=== PATIENT | female | born 1985 | race Hispanic/Latino ===

== ENCOUNTER 2017-08-04 04:25 | Emergency (ER) | payer BC ==
[2017-08-04 05:23] VITALS: BMI 39.5
[2017-08-04 05:28] VITALS: BP 143/99; PULSE 86; RESP 18; TEMP 98; O2SAT 99
[2017-08-04] MEDS ORDERED: Oxycodone/Acetaminophen 5/325 mg Tab PO ONE (05:50)
[2017-08-04] MEDS ORDERED: Oxycodone/Acetaminophen 5/325 mg Tab ONE (06:07)
--- NOTE | 2017-08-04 06:53 | ED PDOC ---
HPI: General Adult Time Seen by Provider: 08/04/17 05:35 Chief Complaint (Nursing): ENT Problem History Per: Patient History/Exam Limitations: no limitations Onset/Duration Of Symptoms: Days (4) Current Symptoms Are (Timing): Still Present Severity: Moderate Similar Symptoms Previously: Yes Additional History Per: Patient Additional Complaint(s): 31 y/o female who complains of atraumatic right ear, neck, and shoulder pain for the last four days. She complains that pain has been worsening and is associated with muscle spasm and posterior headache. Advil did not improve the pain. In the past, patient was seen by chiropractor for similar. Pain not associated with numbness, weakness, or other complaint. Past Medical History Reviewed: Historical Data, Nursing Documentation, Vital Signs Vital Signs: Last Vital Signs Temp 98.0 F 08/04/17 05:26 Pulse 86 08/04/17 05:26 Resp 18 08/04/17 05:26 BP 143/99 H 08/04/17 05:26 Pulse Ox 99 08/06/17 11:52 - Medical History PMH: Kidney Stones, Chronic Kidney Disease Denies: Lancaster's Disease - Surgical History Surgical History: Tonsillectomy - Family History Family History: States: Unknown Family Hx - Immunization History Hx Tetanus Toxoid Vaccination: No Hx Influenza Vaccination: No Hx Pneumococcal Vaccination: No - Home Medications Home Medications: Ambulatory Orders Medication Instructions Recorded Azithromycin [Z-Christian] 250 mg PO DAILY #4 tab 06/13/16 Promethazine HCl/Codeine 5 ml PO Q6H PRN #120 ml 06/13/16 [Prometh-Codein 6.25-10 mg/5 ml] Cyclobenzaprine [Cyclobenzaprine 10 mg PO TID #15 tab 08/04/17 HCl] Naproxen 500 mg PO BID #20 ect 08/04/17 - Allergies Allergies/Adverse Reactions: Allergies Allergy/AdvReac Type Severity Reaction Status Date / Time No Known Allergies Allergy Verified 06/13/16 11:27 Review of Systems ROS Statement: Except As Marked, All Systems Reviewed And Found Negative ENT: Positive for: Ear Pain Musculoskeletal: Positive for: Neck Pain, Shoulder Pain Neurological: Positive for: Headache Physical Exam - Reviewed Nursing Documentation Reviewed: Yes Vital Signs Reviewed: Yes - Physical Exam Appears: Positive for: Well, Non-toxic, No Acute Distress Head Exam: Positive for: ATRAUMATIC, NORMAL INSPECTION, NORMOCEPHALIC Skin: Positive for: Normal Color, Warm, DRY Eye Exam: Positive for: EOMI, Normal appearance, PERRL ENT: Positive for: Normal ENT Inspection Neck: Positive for: Pain On Movement Of Neck. Negative for: Normal (tenderness to palpation of the right cervial paraspinal muscles), Painless ROM Cardiovascular/Chest: Positive for: Regular Rate, Rhythm Respiratory: Positive for: Normal Breath Sounds. Negative for: Respiratory Distress Back: Positive for: Normal Inspection Extremity: Positive for: Normal ROM Neurologic/Psych: Positive for: Alert, Oriented - ECG O2 Sat by Pulse Oximetry: 99 - Progress Re-evaluation Time: 06:50 Condition: Re-examined, Improved Medical Decision Making Medical Decision Making: Impression: neck pain Differential Diagnosis: Muscle Spasm or Torticollis Plan: - Valium - Toradol -percocet reassess Scribe Attestation Documented by Karine Sanabria acting as a scribe for Shalini Tidwell MD. Scribe Attestation All medical record entries made by the Scribe were at my direction and personally dictated by me. I have reviewed the chart and agree that the record accurately reflects my personal performance of the history, physical exam, medical decision making, and the department course for this patient. I have also personally directed, reviewed, and agree with the discharge instructions and disposition. Disposition - Clinical Impression Clinical Impression: Neck pain - Patient ED Disposition Is Patient to be Admitted: No Doctor Will See Patient In The: Office Counseled Patient/Family Regarding: Studies Performed, Diagnosis, Need For Followup - Disposition Referrals: [facility] [Outside] Disposition: Routine/Home Disposition Time: 07:03 Condition: GOOD Additional Instructions: Take your medications as instructed. Follow up with your PCP in 2-3 days. Prescriptions: Cyclobenzaprine [Cyclobenzaprine HCl] 10 mg PO TID #15 tab Naproxen 500 mg PO BID #20 ect Instructions: Neck Pain
== END 2017-08-04 07:28 | disposition home or self-care (01) ==
LOC: H.ER 04:25
DX: M54.2 Cervicalgia (principal)
CPT/HCPCS: 96372; 99282; J1885

== ENCOUNTER 2018-02-25 08:51 | Emergency (ER) | payer BC ==
[2018-02-25 08:51] VITALS: BMI 39.5
[2018-02-25 09:23] VITALS: RESP 18; TEMP 98
--- NOTE | 2018-02-25 10:23 | ED PDOC ---
HPI: Back Time Seen by Provider: 02/25/18 09:00 Chief Complaint (Nursing): Back Pain Chief Complaint (Provider): Back Pain History Per: Patient History/Exam Limitations: no limitations Onset/Duration Of Symptoms: Days (x1 day ago) Current Symptoms Are (Timing): Constant Additional Complaint(s): Nessa Liriano is a 32 year old female with a past medical history of kidney stones, who presents to the emergency department complaining of mid to lower back pain, associated with a post nasal drip and cough, onset x1 day ago. Patient describes abdominal pain as constant and radiating to legs with the more pain on the right to the left. She states she went to an urgent care clinic where they did a UA and it showed there was blood in the urine. Patient was instructed to follow up with ED if pain is constant, causing her to come in today. She denies any abdominal pain, fall or injury. PMD: None Urologist: Dr. Green Past Medical History Reviewed: Historical Data, Nursing Documentation, Vital Signs Vital Signs: Last Vital Signs Temp 98 F 02/25/18 09:17 Pulse 87 02/25/18 09:17 Resp 18 02/25/18 09:17 BP 129/82 02/25/18 09:17 Pulse Ox 98 02/25/18 09:17 - Medical History PMH: Kidney Stones, Chronic Kidney Disease Denies: Alli's Disease - Surgical History Surgical History: Tonsillectomy - Family History Family History: States: Unknown Family Hx - Social History Current smoker - smoking cessation education provided: No Alcohol: None Drugs: Denies - Immunization History Hx Tetanus Toxoid Vaccination: No Hx Influenza Vaccination: No Hx Pneumococcal Vaccination: No - Home Medications Home Medications: Ambulatory Orders Medication Instructions Recorded Promethazine HCl/Codeine 5 ml PO Q6H PRN #120 ml 06/13/16 [Prometh-Codein 6.25-10 mg/5 ml] RX: Azithromycin [Z-Christian] 250 mg PO DAILY #4 tab 06/13/16 Cyclobenzaprine [Cyclobenzaprine 10 mg PO TID #15 tab 08/04/17 HCl] RX: Naproxen 500 mg PO BID #20 ect 08/04/17 Ibuprofen [Motrin] 600 mg PO Q6H PRN #20 tab 02/25/18 Tamsulosin [Flomax] 0.4 mg PO DAILY #14 cap 02/25/18 - Allergies Allergies/Adverse Reactions: Allergies Allergy/AdvReac Type Severity Reaction Status Date / Time No Known Allergies Allergy Verified 06/13/16 11:27 Review of Systems ROS Statement: Except As Marked, All Systems Reviewed And Found Negative ENT: Positive for: Other (nasal drip) Respiratory: Positive for: Cough Gastrointestinal: Negative for: Abdominal Pain Musculoskeletal: Positive for: Back Pain Physical Exam - Reviewed Nursing Documentation Reviewed: Yes Vital Signs Reviewed: Yes - Physical Exam Appears: Positive for: Non-toxic, No Acute Distress Head Exam: Positive for: ATRAUMATIC, NORMOCEPHALIC Skin: Positive for: Normal Color, Warm, Dry Eye Exam: Positive for: Normal appearance, EOMI, PERRL ENT: Positive for: Normal ENT Inspection Neck: Positive for: Normal, Painless ROM, Supple Cardiovascular/Chest: Positive for: Regular Rate, Rhythm. Negative for: Murmur Respiratory: Positive for: Normal Breath Sounds. Negative for: Respiratory Distress Gastrointestinal/Abdominal: Positive for: Normal Exam, Soft. Negative for: Tenderness Back: Positive for: Normal Inspection. Negative for: L CVA Tenderness, R CVA Tenderness, Vertebral Tenderness Extremity: Positive for: Normal ROM. Negative for: Pedal Edema, Deformity Neurologic/Psych: Positive for: Alert, Oriented (x3). Negative for: Motor/Sensory Deficits - Laboratory Results Result Diagrams: 02/25/18 10:30 02/25/18 10:30 - ECG O2 Sat by Pulse Oximetry: 98 (RA) Pulse Ox Interpretation: Normal Medical Decision Making Medical Decision Making: Initial Time: 10:14 Initial Impression: abdominal pain rule out kidney stones or UTI (pt currently on abx for upper respiratory infection) Initial Plan: --Abd and pelvis CT without PO or IV contrast --CMP --CBC with differential --Toradol 30 mg IV --Sodium chloride 1,000 ml --Urine culture --UA 12:24 CT FINDINGS: LOWER THORAX: Unremarkable. LIVER: Unremarkable. No gross lesion or ductal dilatation. GALLBLADDER AND BILE DUCTS: Unremarkable. PANCREAS: Unremarkable. No gross lesion or ductal dilatation. SPLEEN: Unremarkable. ADRENALS: Unremarkable. No mass. KIDNEYS AND URETERS: 5 mm nonobstructing left lower pole renal calculus. Additional punctate nonobst ructing left renal calculi. There is a 6 mm cortical calcification in the upper pole of the left kidney unchanged from previous examination. There is no hydronephrosis. There is no right renal calculus. There is no hydroureter or ureteral calculus. There is no renal mass. There is a cortical scar in the upper pole left kidney. This is nonspecific. VASCULATURE: Unremarkable. No aortic aneurysm. No aortic atherosclerotic calcification or mural plaque present. BOWEL: Unremarkable. No obstruction. No gross mural thickening. APPENDIX: Unremarkable. Normal appendix. PERITONEUM: Unremarkable. No free fluid. No free air. LYMPH NODES: Unremarkable. No enlarged lymph nodes. BLADDER: Unremarkable. REPRODUCTIVE: Normal uterus BONES: No acute fracture. Grade 1 retrolisthesis at L5-S1, likely degenerative. OTHER FINDINGS: None. IMPRESSION: Nonobstructing left renal calculi. No hydronephrosis. Left renal cortical calcification. Left renal cortical scar common nonspecific. No other significant abnormality. 13:12 Patient was given a copy of her CT report. aware of results. she feels improved. pt tolerated po. stable for dc pt has urologist dr alfaro and will follow up w him Scribe Attestation: Documented by Carlos Hamliton, acting as a scribe for Daisy Smalls MD. Provider Scribe Attestation: All medical record entries made by the Scribe were at my direction and personally dictated by me. I have reviewed the chart and agree that the record accurately reflects my personal performance of the history, physical exam, medical decision making, and the department course for this patient. I have also personally directed, reviewed, and agree with the discharge instructions and disposition. Disposition - Clinical Impression Clinical Impression: Kidney stone - Patient ED Disposition Is Patient to be Admitted: No Counseled Patient/Family Regarding: Studies Performed, Diagnosis, Need For Followup - Disposition Disposition: Routine/Home Disposition Time: 13:14 Condition: IMPROVED Additional Instructions: follow up with your urologist Dr alfaro in 1-2 days return to the ED with any worsening or concerning symptoms Prescriptions: Ibuprofen [Motrin] 600 mg PO Q6H PRN #20 tab PRN Reason: Pain, Moderate (4-7) Tamsulosin [Flomax] 0.4 mg PO DAILY #14 cap Instructions: Kidney Stones in Adults Forms: [employer] (Scottish), [facility] ED School/Work Excuse
[2018-02-25 10:46] LABS: BASO % 0.6 % (0.0-2.0); EOS # 0.3 K/uL (0.0-0.7); EOS % 4.8 % (0.0-4.0); HEMOGLOBIN 13.3 g/dL (12.0-16.0); LYMPH # 0.7 K/uL (1.0-4.3); LYMPH % 12.5 % (20.0-40.0); MEAN CELL VOLUME 84.5 fl (81.0-99.0); MEAN CORPUSCULAR HEMOGLOBIN 28.2 pg (27.0-31.0); MEAN CORPUSCULAR HGB CONC 33.4 g/dL (33.0-37.0); MEAN PLATELET VOLUME 6.9 fl (7.2-11.7); MONO # 0.6 K/uL (0.0-0.8); MONO % 10.3 % (0.0-10.0); NEUT % 71.8 % (50.0-75.0); RBC 4.7 Mil/uL (3.80-5.20); RED CELL DISTRIBUTION WIDTH 13.2 % (11.5-14.5); WHITE BLOOD COUNT 5.5 K/uL (4.8-10.8)
[2018-02-25 10:57] LABS: ALB/GLOB RATIO 1.3 (1.0-2.1); ALBUMIN 4.2 g/dL (3.5-5.0); ALT/SGPT 29 U/L (9-52); AST/SGOT 20 U/L (14-36); BLOOD UREA NITROGEN 13 mg/dl (7-17); GFR NON-AFRICAN AMERICAN > 60
[2018-02-25 10:59] LABS: URINE BILIRUBIN NEGATIVE (NEGATIVE); URINE BLOOD MODERATE (NEGATIVE); URINE CLARITY CLOUDY (Clear); URINE COLOR YELLOW (YELLOW); URINE GLUCOSE (UA) NEG (Normal); URINE LEUKOCYTE ESTERASE TRACE Leu/uL (Negative); URINE PROTEIN NEGATIVE (NEGATIVE); URINE UROBILINOGEN 0.2-1.0 mg/dL (0.2-1.0)
[2018-02-25] MEDS: Sodium Chloride 0.9% 1,000 ML IV STA (11:03)
[2018-02-25 11:13] LABS: SQUAMOUS EPITHIAL 20 /hpf (0-5)
[2018-02-25 11:14] LABS: URINE BACTERIA OCC (<OCC)
--- NOTE | 2018-02-25 12:28 | CT ---
Date of service: 02/25/2018 PROCEDURE: CT Abdomen and Pelvis without intravenous contrast HISTORY: abd pain, flank pain COMPARISON: 02/21/2016 TECHNIQUE: Without contrast.. Contrast dose: 0 Radiation dose: Total exam DLP = 923.42 mGy-cm. This CT exam was performed using one or more of the following dose reduction techniques: Automated exposure control, adjustment of the mA and/or kV according to patient size, and/or use of iterative reconstruction technique. FINDINGS: LOWER THORAX: Unremarkable. LIVER: Unremarkable. No gross lesion or ductal dilatation. GALLBLADDER AND BILE DUCTS: Unremarkable. PANCREAS: Unremarkable. No gross lesion or ductal dilatation. SPLEEN: Unremarkable. ADRENALS: Unremarkable. No mass. KIDNEYS AND URETERS: 5 mm nonobstructing left lower pole renal calculus. Additional punctate nonobstructing left renal calculi. There is a 6 mm cortical calcification in the upper pole of the left kidney unchanged from previous examination. There is no hydronephrosis. There is no right renal calculus. There is no hydroureter or ureteral calculus. There is no renal mass. There is a cortical scar in the upper pole left kidney. This is nonspecific. VASCULATURE: Unremarkable. No aortic aneurysm. No aortic atherosclerotic calcification or mural plaque present. BOWEL: Unremarkable. No obstruction. No gross mural thickening. APPENDIX: Unremarkable. Normal appendix. PERITONEUM: Unremarkable. No free fluid. No free air. LYMPH NODES: Unremarkable. No enlarged lymph nodes. BLADDER: Unremarkable. REPRODUCTIVE: Normal uterus BONES: No acute fracture. Grade 1 retrolisthesis at L5-S1, likely degenerative. OTHER FINDINGS: None. IMPRESSION: Nonobstructing left renal calculi. No hydronephrosis. Left renal cortical calcification. Left renal cortical scar common nonspecific. No other significant abnormality.
[2018-02-25 13:13] VITALS: BP 135/84
[2018-02-25 13:14] VITALS: PULSE 98
[2018-02-25 13:28] VITALS: O2SAT 98
== END 2018-02-25 13:31 | disposition home or self-care (01) ==
LOC: H.ER 08:51
DX: N20.0 Calculus of kidney (principal)
CPT/HCPCS: 74176; 80053; 81003; 81025; 85025; 87086; 96374; 99283; J1885; J7030